=== PATIENT | female | born 1995 | race Caucasian/White ===

== ENCOUNTER 2016-11-11 04:54 | Emergency (ER) | payer BC ==
[~2016-11-11] VITALS: Ht 167.6 cm; Wt 58.0 kg
[2016-11-11 04:57] VITALS: TEMP 37.3; Ht 167.6 cm; Wt 58.0 kg
[2016-11-11] MEDS ORDERED: MoRPHine SULFATE 2 MG/ML CARP IV STA (05:13)
[2016-11-11] MEDS ORDERED: SODIUM CHLORIDE 0.9% 1000ML 1,000 ML IV STA (05:13)
[2016-11-11] MEDS ORDERED: ONDANSETRON INJ 2 MG/ML 2 ML VIAL IV STA (05:13)
[2016-11-11 05:49] LABS: BASO % 0.1 %; BASO ABS # 0.01 K/uL (0-0.2); COMPLETE YES; EOS % 0.9 %; HEMATOCRIT 39.5 % (37-47); IG% 0.1 %; LYMPH % 23.2 %; LYMPH ABS # 1.89 K/uL (1.2-3.4); MEAN CORPUSCULAR HGB CONC 33.7 g/dl (32-36); MEAN PLATELET VOLUME 10.9 fL (7.4-10.4); MONO % 6.3 %; NEUT % 69.4 %; PLATELET COUNT 203 K/uL (130-400); RED BLOOD COUNT 4.16 M/uL (4.2-5.4); WHITE BLOOD COUNT 8.14 K/uL (4.8-10.8)
[2016-11-11 05:58] LABS: URINE APPEARANCE TURBID (CLEAR); URINE BILIRUBIN NEG (NEG); URINE COLOR YELLOW; URINE EPITHELIAL CELL AUTO >30 /lpf (0-5); URINE NITRITE NEG (NEG); URINE PH 7.5 (4.5-7.5); URINE SPECIFIC GRAVITY 1.016 (1.000-1.030); UROBILINOGEN NEG (NEG); ZZUR CULT IF INDIC CLEAN CATCH NO
[2016-11-11 06:01] LABS: MANUAL MICROSCOPIC REQUIRED? NO; REVIEW REQ? NO
[2016-11-11 06:09] LABS: BUN/CREATININE RATIO 19.8 (10-20); CALCIUM 9.2 mg/dl (8.5-10.1); CREATININE 0.99 mg/dl (0.60-1.20); MAGNESIUM 2.3 mg/dl (1.8-2.4); POTASSIUM 4.1 mmol/L (3.5-5.1)
[2016-11-11 06:12] LABS: ALB/GLOB RATIO 1.1 (0.9-2)
[2016-11-11] MEDS ORDERED: OPTIRAY 320 IV PRN (06:30)
--- NOTE | 2016-11-11 06:43 | EMERGENCY ROOM VISIT NOTE ---
History First contact with patient: 04:59 Chief Complaint: ABDOMINAL PAIN Stated Complaint: SEVERE ABDOMINAL LING AND TENDERNESS Nursing Triage Summary: Pt reports pain around umbilicus, worse on the right side with palpation, nausea. Sx began last night at 2100. Denies flank pain or urinary s/sx. History of Present Illness The patient is a 21 year old female who presents to the Emergency Department by private vehicle for evaluation of her RIGHT lower quadrant abdominal pain. The patient developed pain in the central portion of her abdomen earlier this evening at approximately 9 PM. She reports that she had intensifying pain throughout the night which prompted her to contact her team physician. She was directed to the emergency Department for further evaluation and management. The patient complains of pain in the RIGHT lower quadrant which is worse with movement. She rates her current discomfort as a 5/10. She is tried over-the- counter medications for symptoms. She does report a loss history of constipation issues. She did try using her laxative shortly before her pain developed. Her last bowel movement was on Wednesday. This is relatively typical for her bowel movements. She denies any fevers, chills, chest pain, palpitations, shortness of breath, nausea, vomiting, hematochezia, melena, hematuria, or dysuria. She denies a chance for . Review of Systems A complete 10-point Review of Systems was discussed with the patient, with pertinent positives and negatives listed in the History of Present Illness. All remaining Review of Systems questions can be considered negative unless otherwise specified. Social History Smoking Status: Never Smoker Smokeless Tobacco Use: No Drug Use: none Marital Status: single Housing Status: lives with roommate Occupation Status: [employer] student Current/Historical Medications Scheduled Control Pills ( Control Pills), 1 TAB PO DAILY Isotretinoin (Claravis), 40 MG PO DAILY Allergies Coded Allergies: No Known Allergies (Unverified , 11/11/16) Physical Exam Vital Signs Date Time Temp Pulse Resp B/P Pulse Ox O2 Delivery O2 Flow Rate FiO2 11/11/16 06:48 48 16 100/68 100 11/11/16 04:57 37.3 63 18 109/73 100 Room Air Pain Rating (0-10): 5 Physical Exam VITAL SIGNS - Vital signs and nursing notes were reviewed. GENERAL - 21-year-old female appearing her stated age who is in no acute distress. Communicates well with provider and answers questions appropriately. LUNGS - Chest wall symmetric without accessory muscle use, intercostals retractions, or central cyanosis. Normal vesicular breath sounds CTA B/L. No wheezes, rales, or rhonchi appreciated. CARDIAC - RRR with S1/S2. No murmur, rubs, or gallops appreciated. ABDOMEN - Abdominal contour flat and without pulsations or visible masses. BS normoactive all four quadrants. Moderate tenderness to palpation appreciated in the RIGHT lower quadrant. No guarding. No Rebound Tenderness. Negative Rovsing' s. Negative Lynn's. No palpable masses, hepatosplenomegaly, or ascites noted. PSYCH - A&Ox3 and cooperates fully with examiner. Pt is very pleasant and interacts well with examiner. Medical Decision & Procedures ER Provider Diagnostic Interpretation: Radiological imaging and reports were reviewed by myself. Radiologist's Interpretation as follows: APPENDICEAL ULTRASOUND CLINICAL HISTORY: RLQ abd pain COMPARISON STUDY: No previous studies for comparison. FINDINGS: There is a small amount of free fluid within the right lower quadrant. The appendix was nonvisualized. IMPRESSION: Nonspecific fluid within the right lower quadrant. Nonvisualization of the appendix. The study is nondiagnostic in regards to acute appendicitis PELVIC ULTRASOUND CLINICAL HISTORY: Right lower quadrant abdominal pain and tenderness. COMPARISON STUDY: None. TECHNIQUE: Transabdominal and transvaginal sonography of the pelvis was performed. FINDINGS: The uterus measures 7 x 2.5 x 4.7 cm. The endometrium measures 1 cm in thickness. The right ovary measures 3.3 x 1.3 x 2 cm and the left measures 2.9 x 1.4 x 2.8 cm. Color flow is identified within each ovary. A small amount of fluid was noted within the pelvis. IMPRESSION: 1. Normal sonographic appearance of the uterus and ovaries. 2. Small amount of fluid within the pelvis. Laboratory Results 11/11/16 05:30 Red Blood Count 4.16, Mean Corpuscular Volume 95.0, Mean Corpuscular Hemoglobin 32.0, Mean Corpuscular Hemoglobin Concent 33.7, Mean Platelet Volume 10.9, Neutrophils (%) (Auto) 69.4, Lymphocytes (%) (Auto) 23.2, Monocytes (%) (Auto) 6.3, Eosinophils (%) (Auto) 0.9, Basophils (%) (Auto) 0.1, Neutrophils # (Auto) 5.65, Lymphocytes # (Auto) 1.89, Monocytes # (Auto) 0.51, Eosinophils # (Auto) 0.07, Basophils # (Auto) 0.01 11/11/16 05:30 Test 11/11/16 05:30 White Blood Count 8.14 K/uL (4.8-10.8) Red Blood Count 4.16 M/uL (4.2-5.4) Hemoglobin 13.3 g/dL (12.0-16.0) Hematocrit 39.5 % (37-47) Mean Corpuscular Volume 95.0 fL (80-100) Mean Corpuscular Hemoglobin 32.0 pg (25-34) Mean Corpuscular Hemoglobin Concent 33.7 g/dl (32-36) Platelet Count 203 K/uL (130-400) Mean Platelet Volume 10.9 fL (7.4-10.4) Neutrophils (%) (Auto) 69.4 % Lymphocytes (%) (Auto) 23.2 % Monocytes (%) (Auto) 6.3 % Eosinophils (%) (Auto) 0.9 % Basophils (%) (Auto) 0.1 % Neutrophils # (Auto) 5.65 K/uL (1.4-6.5) Lymphocytes # (Auto) 1.89 K/uL (1.2-3.4) Monocytes # (Auto) 0.51 K/uL (0.11-0.59) Eosinophils # (Auto) 0.07 K/uL (0-0.5) Basophils # (Auto) 0.01 K/uL (0-0.2) RDW Standard Deviation 46.4 fL (36.4-46.3) RDW Coefficient of Variation 13.3 % (11.5-14.5) Immature Granulocyte % (Auto) 0.1 % Immature Granulocyte # (Auto) 0.01 K/uL (0.00-0.02) Urine Color YELLOW Urine Appearance TURBID (CLEAR) Urine pH 7.5 (4.5-7.5) Urine Specific [place] 1.016 (1.000-1.030) Urine Protein NEG (NEG) Urine Glucose (UA) NEG (NEG) Urine Ketones NEG (NEG) Urine Occult Blood NEG (NEG) Urine Nitrite NEG (NEG) Urine Bilirubin NEG (NEG) Urine Urobilinogen NEG (NEG) Urine Leukocyte Esterase SMALL (NEG) Urine WBC (Auto) 5-10 /hpf (0-5) Urine RBC (Auto) 0-4 /hpf (0-4) Urine Hyaline Casts (Auto) 1-5 /lpf (0-5) Urine Epithelial Cells (Auto) >30 /lpf (0-5) Urine Bacteria (Auto) NEG (NEG) Urine Test NEG (NEG) Anion Gap 7.0 mmol/L (3-11) Est Creatinine Clear Calc Drug Dose 82.3 ml/min Estimated GFR () 94.4 Estimated GFR (Non- 81.5 BUN/Creatinine Ratio 19.8 (10-20) Calcium Level 9.2 mg/dl (8.5-10.1) Magnesium Level 2.3 mg/dl (1.8-2.4) Total Bilirubin 0.3 mg/dl (0.2-1) Aspartate Amino Transf (AST/SGOT) 23 U/L (15-37) Alanine Aminotransferase (ALT/SGPT) 25 U/L (12-78) Alkaline Phosphatase 48 U/L (45-117) Total Protein 7.3 gm/dl (6.4-8.2) Albumin 3.8 gm/dl (3.4-5.0) Globulin 3.5 gm/dl (2.5-4.0) Albumin/Globulin Ratio 1.1 (0.9-2) Lipase 130 U/L (73-393) Medications Administered Medications (Trade) Dose Ordered Sig/Amelia Route Start Time Stop Time Status Last Admin Dose Admin Sodium Chloride (Nss 1000ml) 1,000 ml @ 125 mls/hr Q8H STAT IV 11/11/16 05:13 11/11/16 13:12 11/11/16 05:38 125 MLS/HR Ondansetron HCl (Zofran Inj) 4 mg NOW STAT IV 11/11/16 05:13 11/11/16 05:16 DC 11/11/16 05:37 4 MG Morphine Sulfate (MoRPHine SULFATE INJ) 2 mg NOW STAT IV 11/11/16 05:13 11/11/16 05:16 DC 11/11/16 05:37 2 MG ED Course Patient was seen and evaluated by myself. Labs were drawn, saline lock in place. The patient was hydrated with normal saline at a rate of 125 mL per hour. She received 2 mg morphine and 4 mg Zofran intravenously. Pelvic ultrasound and ultrasound of the RIGHT lower quadrant were ordered. CT of the abdomen and pelvis with IV and oral contrast was ordered. Laboratory results demonstrate no acute leukocytosis, worrisome anemia, or bandemia. The patient has no significant electrolyte abnormalities. Urinalysis does not suggest infection. Ultrasound results above. Laboratory results and ultrasound studies were discussed with the patient who acknowledges understanding. The patient feels somewhat better at this time. Case was signed out to Silke Eugene PA-C pending CT results. Please refer to her dictation for disposition and plan. Medical Decision Given the patient's presentation and stated complaints, I did elect to perform the above-mentioned workup. The patient presents today with worsening symptoms of pain in the RIGHT lower quadrant. She has reproducible tenderness to palpation in this area. Given location of discomfort and worsening symptoms, I did elect to perform the above-mentioned workup. She has no fever. She has no leukocytosis. Ultrasound concerning with fluid in the RIGHT lower quadrant, however. CT is pending at the time of change of shift. Please refer to disposition planning by Silke Eugene PA-C pending CT report. In the evaluation and treatment of this patient, the following differential diagnoses were considered: Appendicitis, Diverticulitis, Diverticulosis, Colitis , Ischemic Colitis, Inflammatory Bowel Disease, Irritable Bowel Disease, Ovarian Torsion, , Ectopic , Kidney Stone, Pyelonephritis, Hydronephrosis, Cholecystitis, Ascending Cholangitis, Choledocholithiasis, GERD. Impression Primary Impression: Right lower quadrant abdominal pain Departure Information Dispostion Still a Patient Condition GOOD Referrals Samreen Aldrich MD (PCP) Patient Instructions My [facility]
[2016-11-11] MEDS ORDERED: BCPILLS PO (06:53)
[2016-11-11] MEDS ORDERED: ISOT40CA PO (06:53)
--- NOTE | 2016-11-11 07:01 | DIAGNOSTIC IMAGING REPORT ---
APPENDICEAL ULTRASOUND CLINICAL HISTORY: RLQ abd pain COMPARISON STUDY: No previous studies for comparison. FINDINGS: There is a small amount of free fluid within the right lower quadrant. The appendix was nonvisualized. IMPRESSION: Nonspecific fluid within the right lower quadrant. Nonvisualization of the appendix. The study is nondiagnostic in regards to acute appendicitis Electronically signed by: Elia Copeland M.D. 11/11/2016 6:59 AM Dictated Date/Time: 11/11/2016 6:58 AM
--- NOTE | 2016-11-11 07:03 | DIAGNOSTIC IMAGING REPORT ---
PELVIC ULTRASOUND CLINICAL HISTORY: Right lower quadrant abdominal pain and tenderness. COMPARISON STUDY: None. TECHNIQUE: Transabdominal and transvaginal sonography of the pelvis was performed. FINDINGS: The uterus measures 7 x 2.5 x 4.7 cm. The endometrium measures 1 cm in thickness. The right ovary measures 3.3 x 1.3 x 2 cm and the left measures 2.9 x 1.4 x 2.8 cm. Color flow is identified within each ovary. A small amount of fluid was noted within the pelvis. IMPRESSION: 1. Normal sonographic appearance of the uterus and ovaries. 2. Small amount of fluid within the pelvis. Electronically signed by: Kirk Snell M.D. 11/11/2016 7:02 AM Dictated Date/Time: 11/11/2016 7:01 AM
--- NOTE | 2016-11-11 07:53 | DIAGNOSTIC IMAGING REPORT ---
CT ABD/PELVIS IV AND ORAL CONT CLINICAL HISTORY: RLQ abd pain COMPARISON STUDY: None. TECHNIQUE: Following the IV administration of 93 mL of Optiray-320, CT scan of the abdomen and pelvis was performed from the lung bases to the proximal femurs. Images are reviewed in the axial, sagittal, and coronal planes. IV contrast was administered without complication. CT DOSE: 281.89 mGy.cm FINDINGS: Lower chest: The heart is normal in size and configuration, without pericardial effusion. The lung bases and pleural spaces are clear. Liver: The contrast-enhanced liver is normal in size, contour, and attenuation. There is no intrahepatic biliary ductal dilatation. The hepatic veins and portal veins are patent. Gallbladder: Unremarkable. Spleen: Normal in size and attenuation. Pancreas: Unremarkable. Adrenal glands: Unremarkable. Kidneys: There is symmetric renal cortical enhancement. The kidneys are normal in size without hydronephrosis. Bowel: There are no transition zones indicate bowel obstruction. There is a small amount of formed stool within the terminal ileum. There is no evidence of acute diverticulitis. The appendix is difficult to visualize in its entirety, but there are no findings to indicate acute appendicitis. Peritoneum: There is no free air. There is a small amount of free fluid within the pelvis. Vasculature: The abdominal aorta is normal in course and caliber. Adenopathy: None. Pelvic viscera: The bladder, and pelvic viscera are unremarkable. Skeletal structures: No destructive osseous lesions are seen. IMPRESSION: 1. No evidence of bowel obstruction. No evidence of free air 2. The appendix is difficult to visualize in its entirety. The visualized portions of the appendix are at the upper limits of normal in diameter. There are no current findings to indicate acute appendicitis. Close clinical follow-up is advocated. 3. Small amount of free fluid within the pelvis 4. Mild fecal retention Electronically signed by: Elia Copeland M.D. 11/11/2016 7:52 AM Dictated Date/Time: 11/11/2016 7:46 AM
--- NOTE | 2016-11-11 08:18 | EMERGENCY ROOM VISIT NOTE ---
ED Visit Note First contact with patient: 07:07 ED note: Care of this 21-year-old white female patient was signed out to me from Ryan Hloland PA-C, at change of shift. Please refer to his dictation for the complete history, physical exam and ED course to this point. Briefly, patient is a 21-year-old white female who has been experiencing periumbilical pain that radiated to the right lower quadrant times roughly 12 hours. At change of shift , CT scan of the abdomen and pelvis to evaluate for appendicitis was pending. Findings are as noted below. The appendix is difficult to visualized in its entirety and the visualized portions of the appendix are at the upper limits of normal in diameter however there are no findings to indicate acute appendicitis at this time. CT scan findings were discussed with the patient. It was advised that he be reexamined in 12-24 hours, and certainly should return to the emergency department immediately if she should develop worsening pain, fevers or vomiting. She expressed understanding of this and was agreeable. She was reexamined and did still have some discomfort with deep palpation in the right lower quadrant. She did not have any peritoneal signs. I did also speak with the patient's team physician, Dr. Aldrich, who is also available to reevaluate the patient. The patient was discharged home into the care of friends in good condition. She rated her pain a 3/10 at discharge. DIAGNOSTIC IMAGING: CT ABD/PELVIS IV AND ORAL CONT CLINICAL HISTORY: RLQ abd pain COMPARISON STUDY: None. TECHNIQUE: Following the IV administration of 93 mL of Optiray-320, CT scan of the abdomen and pelvis was performed from the lung bases to the proximal femurs. Images are reviewed in the axial, sagittal, and coronal planes. IV contrast was administered without complication. CT DOSE: 281.89 mGy.cm FINDINGS: Lower chest: The heart is normal in size and configuration, without pericardial effusion. The lung bases and pleural spaces are clear. Liver: The contrast-enhanced liver is normal in size, contour, and attenuation. There is no intrahepatic biliary ductal dilatation. The hepatic veins and portal veins are patent. Gallbladder: Unremarkable. Spleen: Normal in size and attenuation. Pancreas: Unremarkable. Adrenal glands: Unremarkable. Kidneys: There is symmetric renal cortical enhancement. The kidneys are normal in size without hydronephrosis. Bowel: There are no transition zones indicate bowel obstruction. There is a small amount of formed stool within the terminal ileum. There is no evidence of acute diverticulitis. The appendix is difficult to visualize in its entirety, but there are no findings to indicate acute appendicitis. Peritoneum: There is no free air. There is a small amount of free fluid within the pelvis. Vasculature: The abdominal aorta is normal in course and caliber. Adenopathy: None. Pelvic viscera: The bladder, and pelvic viscera are unremarkable. Skeletal structures: No destructive osseous lesions are seen. IMPRESSION: 1. No evidence of bowel obstruction. No evidence of free air 2. The appendix is difficult to visualize in its entirety. The visualized portions of the appendix are at the upper limits of normal in diameter. There are no current findings to indicate acute appendicitis. Close clinical follow-up is advocated. 3. Small amount of free fluid within the pelvis 4. Mild fecal retention DIAGNOSIS: Right lower quadrant abdominal pain DISCHARGE INSTRUCTIONS: DO NOT drive, drink alcohol, operate machinery, or perform dangerous activities today. You were given medications in the ER that can affect your ability to safely function or operate a vehicle. Ibuprofen(Motrin, Advil) may be used for fever or pain. Use 600mg every six hours as needed. Take with food. Avoid using more than 2400mg in a 24 hour period. Do not use 2400mg per day for more than three consecutive days without physician direction. Prolonged inappropriate use can lead to stomach upset or ulcers. This is available over the counter and typically comes in 200mg tablets. (AND/OR) Acetaminophen(Tylenol) may be used for fever or pain. Use 1000mg every eight hours as needed. Avoid using more than 3000mg in a 24 hour period. This is available over the counter. Read all the package inserts or medication information paperwork provided. If you have any questions or concerns call your primary provider, pharmacist or the ER for assistance. Rest and drink plenty of fluids as tolerated. Slow sips of water or sports drinks are recommended instead of large amounts all at once. Continue current medications. Once your stomach is settled start with a clear liquid diet (jello, soup broth, etc.) and then advance as tolerated. You should avoid full, heavy meals for about 24 hrs from the time your symptoms resolved. Return to the ER immediately for worsening or persistent abdominal pain, vomiting, fevers, chest pains, difficulty breathing, black or bloody stools, worsening of your condition, or as needed. Return to the ER or follow up with your primary provider in 8-12 hours for a recheck of your current condition.
[2016-11-11 08:32] VITALS: BP 115/84; PULSE 60; O2SAT 100
== END 2016-11-11 08:58 | disposition home or self-care (01) ==
LOC: C.EDB 04:55
DX: R10.31 Right lower quadrant pain (principal); Z79.3 Long term (current) use of hormonal contraceptives; Z79.899 Other long term (current) drug therapy

== ENCOUNTER 2022-09-19 04:20 | Inpatient (IN) ==
[2022-09-19] MEDS ORDERED: LIDOCAINE 1% LOCAL 20 ML VIAL INFIL PRN (05:04)
[2022-09-19] MEDS ORDERED: OXYTOCIN 30 UNITS/500 ML BAG IV PRN ×2 (05:04→10:25)
[2022-09-19 05:40] LABS: Hematocrit (blood only) 35.8 % (37.0-47.0); Hemoglobin 12.3 g/dl (12.0-16.0); Mean Corpuscular Hemoglobin 31.1 pg (25.0-34.0); Mean Corpuscular Hgb Conc 34.4 g/dL (32.0-36.0); Mean Corpuscular Volume 90.4 fL (80.0-100.0); Platelet Count 159 K/uL (130-400); RDW Coefficient of Variation 13.6 % (11.5-14.5); RDW Standard Deviation 44.2 fL (36.4-46.3); Red Blood Count 3.96 M/uL (4.20-5.40); White Blood Count 8.26 K/ul (4.8-10.8)
[2022-09-19] MEDS: LACTATED RINGER'S 1,000 ML IV PRN ×2 (06:18→07:13)
[2022-09-19] MEDS ORDERED: ePHEDrine sulfate 50 MG/ML AMP ONE (06:22)
[2022-09-19] MEDS ORDERED: SODIUM CHLORIDE 0.9% INJ 10 ML VIAL ONE (06:22)
[2022-09-19] MEDS ORDERED: fentaNYL citrate 100 MCG/2 ML VIAL ONE (06:22)
[2022-09-19] MEDS ORDERED: BUPIVACAINE 0.25% 30 ML VIAL ONE (06:23)
[2022-09-19] MEDS ORDERED: fentaNYL 2MCG/ML ROPIVACAINE 1.25MG/ML 100 ML BAG EPI ONE (06:23)
[2022-09-19] MEDS ORDERED: LIDOCAINE 2%/EPINEPHRINE 1:200,000 20 ML SDV ONE (06:23)
--- NOTE | 2022-09-19 07:05 | Anesthesiology Consultation ---
Date of Service September 19, 2022 Assessment & Plan (1) Encounter for pre-operative examination: Chart Review Chart Review: Acceptable Risk for Labor Epidural History Height/Weight Height: 5 ft 6 in Weight: 68.492 kg Allergies Allergy/AdvReac Type Severity Reaction Status Date / Time No Known Allergies Allergy Verified 09/19/22 04:43 Medications Home Medications Medication Instructions Recorded Confirmed Last Taken prenat.vits,majo,eim-ggmy-ofoac 1 tab PO DAILY 03/11/22 09/19/22 09/18/22 Active Medications Generic Name Dose Route Start Last Admin Trade Name Freq PRN Reason Stop Dose Admin Lactated Ringer's 1,000 mls @ 125 mls/hr 09/19/22 05:04 09/19/22 06:18 Lr IV 09/21/22 05:03 999 mls/hr .Q8H PRN Administration L&D Protocol Protocol Past Medical History Medical History Varicella vaccination Past Family History Family History Mother Breast cancer Grandmother (Maternal) Breast cancer Father A-fib Denies family history of Ovarian cancer Colorectal cancer Past Surgical History Surgical History [place] teeth removed Social History Smoking Status: Never smoker Hx Alcohol Use: No Hx Substance Use: No substance use type: does not use Physical Exam Vital Signs Last Vital Signs Temp 36.8 C 09/19/22 06:21 Pulse 79 09/19/22 07:03 Resp 20 09/19/22 06:21 BP 137/86 09/19/22 06:21 Pulse Ox 100 09/19/22 07:03 O2 Del Method 09/19/22 04:43 Testing Laboratory Results 09/19/22 05:23
[2022-09-19] MEDS ORDERED: fentaNYL 2MCG/ML ROPIVACAINE 1.25MG/ML 100 ML BAG EPI PRN (07:26)
[2022-09-19] MEDS ORDERED: ePHEDrine sulfate 50 MG/ML AMP IV PRN (07:26)
[2022-09-19] MEDS ORDERED: NALOXONE HCL 1 MG in SODIUM CHLORIDE 0.9% 1000ML 1,000 ML IV PRN (07:26)
[2022-09-19] MEDS ORDERED: NALOXONE HCL 0.4 MG/1 ML VIAL/CARP IV PRN (07:26)
[2022-09-19] MEDS ORDERED: ONDANSETRON INJ 2 MG/ML 2 ML VIAL IV PRN (07:26)
--- NOTE | 2022-09-19 08:24 | Labor Progress Brief Note ---
Date of Service September 19, 2022 Subjective Admitted after SROM at home this morning followed by onset of contractions, first examined by RN who confirmed ROM and labor, then ambulated until she was painful enough to request epidural. Comfortable with epidural now, and examined by MD at this time. Assessment & Plan (1) Normal labor: Plan: Continue current / expectant mgmt, anticipate . Admission and Anticipated Discharge Date Admission Date: September 19, 2022 Physical Exam Genitourinary: FHT Cat 1 Carnuel Q2-3 9/100/0 to +1 LOF clear Small bloody show Results & Data ([facility]) Vital Signs (Past 12 Hours) Vital Signs Temp Pulse Resp BP Pulse Ox O2 Del Method 09/19/22 07:00 18 09/19/22 04:43 97.9 F 18 Room Air 09/19/22 08:18 82 112/68 100 09/19/22 08:13 85 100 09/19/22 08:08 71 100 09/19/22 08:07 76 98/60 L 09/19/22 08:03 74 99 09/19/22 07:58 89 100 09/19/22 07:57 90 103/65 09/19/22 07:53 84 100 09/19/22 07:48 75 09/19/22 07:48 65 103/62 100 09/19/22 07:43 65 100 09/19/22 07:38 80 108/56 L 100 09/19/22 07:33 79 99 09/19/22 07:31 71 110/67 09/19/22 07:30 18 09/19/22 07:30 18 09/19/22 07:29 75 107/68 09/19/22 07:28 78 99 09/19/22 07:27 66 115/71 09/19/22 07:25 80 18 112/70 09/19/22 07:23 70 114/67 99 09/19/22 07:22 71 118/60 09/19/22 07:19 67 135/85 09/19/22 07:18 73 90 09/19/22 07:13 88 133/81 100 09/19/22 07:08 94 H 98 09/19/22 07:05 81 87 L 09/19/22 07:03 79 100 09/19/22 06:59 79 94 09/19/22 06:58 80 100 09/19/22 06:53 82 80 L 09/19/22 06:48 79 90 09/19/22 06:43 83 100 09/19/22 06:41 87 92 09/19/22 06:38 72 96 09/19/22 06:35 76 89 L 09/19/22 06:33 77 100 09/19/22 06:28 91 09/19/22 06:28 69 09/19/22 06:28 68 99 09/19/22 06:23 76 100 09/19/22 06:21 98.2 F 61 20 137/86 09/19/22 06:20 80 94 09/19/22 06:18 70 100 09/19/22 04:36 18 09/19/22 04:36 97.9 F 18 09/19/22 04:37 68 132/87 Coding Level of Care Code None Diagnoses Normal labor O80; Z37.9
[2022-09-19] MEDS ORDERED: METHYLERGONOVINE MALEATE 0.2 MG/ML AMP ONE (10:09)
[2022-09-19] MEDS ORDERED: DIPHTHERIA/TETANUS/PERTUSSIS 0.5mL SYR/VIAL (Age 7+yrs) IM ONE (10:25)
[2022-09-19] MEDS ORDERED: oxyCODONE/ACETAMINOPHEN 5mg/325mg TAB PO PRN (10:25)
[2022-09-19] MEDS ORDERED: METHYLERGONOVINE MALEATE 0.2 MG/ML AMP IM ONE (10:25)
[2022-09-19] MEDS ORDERED: BENZOCAINE 20% AER SPR 82.5 GM CAN EXT PRN (10:25)
[2022-09-19] MEDS ORDERED: HYDROCORTISONE ACETATE 25 MG SUPP PR PRN (10:25)
[2022-09-19] MEDS ORDERED: ACETAMINOPHEN 325 MG TAB PO PRN (10:25)
--- NOTE | 2022-09-19 10:29 | Delivery Summary ---
Vaginal Delivery Summary Date of Service September 19, 2022 Vaginal Delivery Summary and 2nd Degree LAC Pre-operative Diagnosis: at 38 4/7 weeks srom labor Post-operative Diagnosis: same Procedure: epidural second degree laceration and repair EBL: 300cc Anesthesia: epidural Procedure: The patient pushed for 10 minutes to deliver a viable female in RICARDO position. The nose and mouth were bulb suctioned on the perineum and the rest of the was then delivered without difficulty. The baby was vigorous. The nose and mouth were again bulb suctioned and the was placed in the maternal abdomen for drying and attention. Cord was clamped and cut at one minute of life. Cord blood and segment obtained. Placenta delivered spontaneous, intact with a three vessel cord. Cervix/sulci/rectum were intact. A second degree perineal laceration was repaired in the normal standard fashion. Hemostasis obtained with dilute pitocin and fundal massage. Apgars were 7/8. Mother and baby doing well at the end of the delivery. [facility] Vaginal Delivery Charge Delivery Type Details: and 2nd Degree LAC
--- NOTE | 2022-09-19 11:14 | Med Student Post OP Brief Note ---
Med Student Imm Post Op Note Date of Surgery September 19, 2022 Pre & Post Diagnosis Pre-Op Diagnosis: 1. Valdes intrauterine at 38 weeks/4 days gestation 2. Spontaneous rupture of membranes Post-Op Diagnosis: Same Procedure Spontaneous vaginal delivery, second degree perineal tear and repair Surgeon Dr. Adilene Fuchs MD [employer] Shirlene Simental, MS2 Estimated Blood Loss 300 mL Findings Placenta: Spontaneous and intact with a 3-vessel cord. Procedure: 1. Spontaneous Vaginal Delivery 2. Second degree perineal tear repair with 3-0 vicryl in normal fashion Procedure Description: The patient was dilated to a 10 and allowed to labor down for about 45 minutes. She then felt pressure to push. The perineum was protected. She began pushing and delivered the baby in about 15 minutes. Between contractions, the perineum was massaged. The infants head was first delivered with contraction force and pushing. The head was in the left occiput anterior (RICARDO) position. There was no nuchal cord. The infants mouth and nose were suctioned upon head delivery. The shoulders and body were delivered with contraction force and pushing, with no difficulty, and the infant was placed on the maternal abdomen. The sex was identified as female. was making vigorous movements and respiratory efforts. The cord was double clamped, then cut by the FOB. Cord blood was collected. The uterus was massaged, and Pitocin was administered for hemostasis. The placenta was delivered spontaneously with mild traction on the umbilical cord and external pressure on the uterine fundus. The placenta was noted to be intact with a 3-vessel cord. The cervix, vagina, and perineum were inspected, and a 2nd degree perineal tear was identified. This laceration was repaired with 3-0 vicryl in normal fashion. scores of were 7 and 8 at 1 and 5 minutes respectively, and patient was doing well post-delivery and laceration repair. Anesthesia Type Epidural Complications None Disposition Stable mom and baby post delivery.
[2022-09-19] MEDS: IBUPROFEN 600 MG TAB PO PRN (13:35)
[2022-09-19] MEDS: DOCUSATE SODIUM 100 MG CAP PO SCH (20:28)
[2022-09-20 06:45] LABS: Hematocrit (blood only) 31.9 % (37.0-47.0); Hemoglobin 10.8 g/dl (12.0-16.0)
[2022-09-20] MEDS: DOCUSATE SODIUM 100 MG CAP PO SCH (07:48)
[2022-09-20] MEDS: IBUPROFEN 600 MG TAB PO PRN (07:48)
[2022-09-20] MEDS ORDERED: PRENATAL VITAMIN 1 TAB PO SCH (08:00)
--- NOTE | 2022-09-20 09:40 | Medical Student Progress Note ---
Date of Service September 20, 2022 Assessment & Plan (1) Status post vaginal delivery: Plan: Juhi is a 26-year-old female s/p at 38 4/7 weeks on PPD #1. No acute concerns for uterine hemorrhage or infection. She is recovering well and would like to go home today. a. Continue OOB, ambulation, diet as tolerated b. Discharge instructions reviewed. Follow up for visit in 6 weeks. Admission and Anticipated Discharge Date Admission Date: September 19, 2022 Subjective Juhi is a 26-year-old female s/p at 38 4/7 weeks on PPD #1. Reports she is overall feeling well. Reports some nipple and breast soreness with , but otherwise reports baby is feeding well. Reports minimal pain with movement, and intermittent abdominal cramping, but grossly feels well. Passing gas, no bowel movement yet. She is consuming a regular diet with no nausea or vomiting. Able to ambulate. Improving lochia. Review of Systems Review of Systems: Constitutional: No fevers or chills. Respiratory: No SOB, cough, wheezing. Cardiac: No chest pain or palpitations. Breast: + breast discomfort/soreness. No abnormal breast discharge. Urinary: No dysuria. Neuro: No headaches. Physical Exam Physical Exam: Heart: Regular rate and rhythm. No murmurs, rubs, gallops. Lungs: Clear to auscultation bilaterally. Abdomen: Bowel sounds present. No point tenderness to palpation. Uterus: Uterine fundus firm, palpable 2 cm below the umbilicus. Lower Extremities: No edema or calf pain with palpation. Negative Homans sign. Results & Data ([facility]) Vital Signs (Past 12 Hours) Vital Signs Temp Pulse Resp BP Pulse Ox O2 Del Method 09/20/22 09:00 36.5 C 77 16 111/74 97 Room Air 09/20/22 03:13 37.1 C 81 18 121/78 09/19/22 23:41 36.9 C 81 18 97/60 L Laboratory Results Hgb of 10.8 this morning. Heart rate stable.
--- NOTE | 2022-09-20 10:02 | Obstetrical Progress Note ---
Date of Service September 20, 2022 Assessment & Plan (1) Status post vaginal delivery: Plan Doing well. Would like d/c today. Instructions reviewed. f/u 6 weeks in the office. Day #:: 1 Subjective Ambulation: ambulating normally Voiding: no voiding problems Passing Gas:: Yes Diet Tolerance:: regular diet Lochia:: Small Feeding Type:: breast feeding Physical Exam Constitutional WD/WN, vitals as above Cardiovascular Extremities: no calf tenderness and no edema Gastrointestinal (Abdomen) sof, nt, nd, ff/nt 1 below u Psychiatric A+Ox3, euthymic affect Results & Data ([facility]) Vital Signs (Past 12 Hours) Vital Signs Temp Pulse Resp BP Pulse Ox O2 Del Method 09/20/22 09:00 36.5 C 77 16 111/74 97 Room Air 09/20/22 03:13 37.1 C 81 18 121/78 09/19/22 23:41 36.9 C 81 18 97/60 L
[2022-09-20] MEDS ORDERED: bisacodyL 5 MG TABEC PO SCH (20:00)
[2022-09-21] MEDS ORDERED: bisacodyL 10 MG SUPP PR PRN (09:00)
== END 2022-09-20 13:45 | disposition home or self-care (01) | DRG 807 ==
LOC: OPB 04:20 → 4S1 04:22 → 4E2 13:24